=== PATIENT | male | born 1985 | race Caucasian/White ===

== ENCOUNTER 2023-01-02 11:12 | Day surgery (SDC) | payer BC ==
[~2023-01-02] VITALS: Ht 190.5 cm; Wt 97.5 kg
[~2023-01-02 11:12] MED LIST: AZIT250 PO; GUAPHELA PO; IBUP800 PO
[2023-01-02] MEDS ORDERED: OMEP20ER (11:39)
[2023-01-02 13:44] VITALS: BP 106/79
== END 2023-01-02 13:45 | disposition home or self-care (01) ==
LOC: ORSCSDS 11:12
PROVIDERS: Internal Medicine Gastroenterology
PROC: 0DB68ZX Excision of Stomach, Via Natural or Artificial Opening Endoscopic, Diagnostic (ICD-10-PCS; principal; 2023-01-02 12:30)
PROC: 0DB58ZX Excision of Esophagus, Via Natural or Artificial Opening Endoscopic, Diagnostic (ICD-10-PCS; principal; 2023-01-02 12:30)
DX: K21.00 Gastro-esophageal reflux disease with esophagitis, without bleeding (principal); K44.9 Diaphragmatic hernia without obstruction or gangrene; Z79.899 Other long term (current) drug therapy; Z87.891 Personal history of nicotine dependence
CPT/HCPCS: 88305; 88342; J0461; J2001; J2405; J2704; J7120; Q9968